=== PATIENT | female | born 2000 | race Caucasian/White ===

== ENCOUNTER 2018-02-07 16:24 | Emergency (ER) | payer SELFPAY ==
[~2018-02-07] VITALS: Ht 165.1 cm; Wt 90.3 kg
[2018-02-07 16:25] VITALS: BP 142/85
== END 2018-02-07 16:49 | disposition home or self-care (01) ==
LOC: MED 16:24
DX: L30.9 Dermatitis, unspecified (principal)
CPT/HCPCS: 99283